=== PATIENT | female | born 2000 | race Caucasian/White ===

== ENCOUNTER 2020-10-30 00:24 | Emergency (ER) | payer OTHER ==
[~2020-10-30 00:24] MED LIST: ENSKYCE 28 TAB1 EACH PO; MOBIC7.5 MG PO; NAPROXEN500 MG PO; ZOFRAN4 MG PO; ZOFRAN8 MG PO
[2020-10-30] MEDS ORDERED: PERCOCET 5-3251 EACH PO (04:04)
[2020-10-30] MEDS ORDERED: IBUPROFEN800 MG PO (04:04)
== END 2020-10-30 04:25 | disposition home or self-care (01) ==
LOC: FER 00:24
DX: S52.532A Colles' fracture of left radius, initial encounter for closed fracture (principal); S52.502A Unspecified fracture of the lower end of left radius, initial encounter for closed fracture; F17.200 Nicotine dependence, unspecified, uncomplicated; V23.5XXA Motorcycle passenger injured in collision with car, pick-up truck or van in traffic accident, initial encounter; Y92.410 Unspecified street and highway as the place of occurrence of the external cause
CPT/HCPCS: 71045; 73110; 73564